=== PATIENT | male | born 1980 | race Caucasian/White ===

== ENCOUNTER 2016-03-07 14:05 | Emergency (ER) | payer SELFPAY ==
[2016-03-07 14:24] VITALS: BP 211/126; PULSE 111; TEMP 98.8; BMI 45.9
[2016-03-07] MEDS ORDERED: HYDROCODONE 5 MG/ACETAMIN 325 MG TAB PO ONE (14:26)
--- NOTE | 2016-03-07 14:28 | EDPRACDOC ---
- General Information Stated Complaint: HELPING MOVE INJURED LOWER BACK HX HIP REPLACEMENT Time Seen by Provider: 03/07/16 14:21 Information Source: Patient Home Medications: Home Medications Cyclobenzaprine HCl [Flexeril] 10 mg PO TID PRN #15 tablet 03/07/16 Hydrocodone Bit/Acetaminophen [Lortab 5/325] 1 tab PO Q4-6H PRN #15 tab Prednisone [Deltasone, Orasone] 20 mg PO DAILY #20 tab 03/07/16 Allergies/Adverse Reactions: Allergies Allergy/AdvReac Type Severity Reaction Status Date / Time Penicillins Allergy Unknown Verified 03/07/16 14:36 tramadol Allergy Nausea/Vomi Verified 03/07/16 14:36 ting bee venom Allergy Edema-Local Uncoded 03/07/16 14:36 ized - History of Present Illness Onset: 3 days HPI: Pt c/o lower back pain radiating to R hip x 3 days after helping a friend move. Denies abd pain, n/v, loss of control bowel or bladder, leg weakness or numbness. Pain Location: Reports: Right, Lumbar Pain Radiates To: Reports: Buttock (R) Pain Caused By: Reports: Lifting, Spontaneous Circumstances: Reports: Other (moving furniture) Relevant History: Denies: Abdominal aneurysm, Arthiritis, Cancer, Chronic back pain, Gallbladder disease, Pancreatitis, Pyelonephritis, Urolithiasis, UTI, None , CT, O Pain Severity: Reports: Moderate Pain Quality: Reports: Aching Worsened By: Reports: Movement, Walking Associated Signs and Symptoms: Reports: None ED Past Medical History - History Reviewed Yes Nurses notes reviewed and agree except as marked - Social Medical History Smoking Status: Current status unknown ETOH: None Substance Abuse: None EDM Review of Systems - Review of Systems Constitutional: No Symptoms Reported. negative: Fever, Chills, Weakness, Fatigue, Loss of Appetite Respiratory: No Symptoms Reported. negative: Cough, Brassy Cough, Barky Cough, Shortness of Breath, Wheezing, Hemoptysis Cardiovascular: No Symptoms Reported. negative: Chest Pain, Palpitations, Syncope, Edema, Orthopnea, PND, Skin Mottling, Cyanosis Gastrointestinal: No Symptoms Reported. negative: Pain, Constipation, Nausea, Vomiting, Diarrhea, Melena, Formula Intolerance Genitourinary: No Symptoms Reported. negative: Dysuria, Hematuria, Frequency, Discharge, Bleeding, Testicular Pain, Neurological: No Symptoms Reported. negative: Headache, Dizziness, Seizure, Numbness, Weakness, Speech Difficulty, Gait Difficulty Musculoskeletal: Back, Hip Integumentary: No Symptoms Reported. negative: Itching, Rash, Bruising, Wound Allergic/Immunologic: No Symptoms Reported. negative: Hives, Itching Hematologic: No Symptoms Reported. negative: Lymphadenopathy, Easy Bruising, Easy Bleeding Psychiatric: No Symptoms Reported. negative: Anxiety, Depression, Hallucinations, Insomnia, Suicidal - Physical Exam Constitutional: Alert Oriented to: Time, Person, Place Last recorded Vital Signs: Last Vital Signs Temp 98.8 F 03/07/16 14:22 Pulse 111 03/07/16 14:22 Resp 20 03/07/16 14:22 BP 211/126 H 03/07/16 14:22 Pulse Ox 97 03/07/16 14:22 Oxygen Pulse Oxygen Saturation 97 O2 Device Room Air Oxygen Flow Rate Fraction of Inspired Oxygen ( FIO2) - HEENT Head: Normal ( normocephalic) Eye Exam: Normal (PERRL, EOMI, Sclera white) Neck: Normal (FROM, trachea at midline) - Respiratory/Cardiovascular Respiratory: Normal - CTA (BBS clear to auscultation without adventitious sounds ) Cardiovascular: Normal (RRR without murmur, gallop or rub) - GI Auscultation: Normal (NABS) Palpation: Normal (Soft,No rebound or guarding, non distended) Tenderness: Non tender Logan's Sign: Negative - Musculoskeletal Back: Lumbar TTP Extremities: Normal (Normal tone, Pulses 2+ No cyanosis or edema, FROM) - Integumentary Skin: Normal, Warm, Dry Lymphatics: Normal (no adenopathy) - Neurologic Memory Impaired: Normal Motor Function: Normal (Normal tone, Pulses 2+ No cyanosis or edema, FROM) Mood Description: Normal Perception: Normal ED Back Exam - Neurologic Motor Deficit: None (strength 5/5, sensation nl) Reflexes: Normal (CN II-X11 intact) - Musculoskeletal Cervical: Normal Thoracic: Normal Lumbar: Tender Midline: Tender Paraspinous: Tender Straight Leg Raise: Negative Pelvis: Normal - Differential Diagnosis DJD, Fracture, HNP, Strain - Diagnostic Imaging L-Spine Image interpreted by: Radiologist IMPRESSION: Chronic changes in the lumbar spine without acute abnormality. Decision Time to Discharge: 15:14 - Departure Disposition: Home Condition: Good Final Diagnosis: Lumbar radiculopathy Strain of lumbar paraspinous muscle Qualifiers: Encounter type: initial encounter Qualified Code(s): S39.012A - Strain of muscle, fascia and tendon of lower back, initial encounter Instructions: Lumbar Radiculopathy (ED), Core Strengthening Exercises (GEN), Back Pain, Thoracic (Lumbar) Strain Education/Counseling Given To: Patient Education/Counseling Given Regarding: Diagnosis, Treatment, Follow Up Referrals: None,No Provider [Primary Care Provider] - One Week Clifford Ch MD [Staff Physician] - One Week Ruddy Ortiz MD [Staff Physician] - One Week Prescriptions: New Cyclobenzaprine HCl [Flexeril] 10 mg PO TID PRN #15 tablet PRN Reason: Pain Hydrocodone Bit/Acetaminophen [Lortab 5/325] 1 tab PO Q4-6H PRN #15 tab PRN Reason: Pain Prednisone [Deltasone, Orasone] 20 mg PO DAILY #20 tab Additional Instructions: Follow up with Personal MD in 1-2 days. Return for worse or different symptoms.
--- NOTE | 2016-03-07 14:53 | DIRPT ---
CLINICAL DATA: Low back pain following moving furniture EXAM: LUMBAR SPINE - COMPLETE 4+ VIEW COMPARISON: None. FINDINGS: Five lumbar type vertebral bodies are well visualized. Vertebral body height is well maintained. Degenerative changes are noted at the L1-2 and L4-5 interspace. No acute compression deformity is seen. No soft tissue changes are noted. IMPRESSION: Chronic changes in the lumbar spine without acute abnormality. Electronically Signed By: Trey Dash M.D. On: 03/07/2016 14:50
== END 2016-03-07 15:52 | disposition home or self-care (01) ==
LOC: EDMC 14:05
DX: M54.16 Radiculopathy, lumbar region (principal); S39.012A Strain of muscle, fascia and tendon of lower back, initial encounter; X58.XXXA Exposure to other specified factors, initial encounter; Y93.9 Activity, unspecified
CPT/HCPCS: 72110; 99282; J3490; 36415; 96374